=== PATIENT | male | born 1935 ===

== ENCOUNTER → 2017-01-21 | Outpatient (CLI) | payer OTHER | END | disposition home or self-care (01) | LOC: GT 07:44 | PROVIDERS: ATTEND Family Medicine | DX: E11.9 Type 2 diabetes mellitus without complications (principal) ==

== ENCOUNTER → 2017-01-23 | Outpatient (CLI) | payer OTHER | END | disposition home or self-care (01) | LOC: GT 08:15 | PROVIDERS: ATTEND Family Medicine | DX: E11.9 Type 2 diabetes mellitus without complications (principal) | CPT/HCPCS: 36415; 84443; P9603 ==

== ENCOUNTER 2017-02-17 10:26 | Inpatient (IN) | payer OTHER ==
--- NOTE | 2017-02-17 11:19 | RAD ---
EXAM DESCRIPTION: Chest,1 View CLINICAL HISTORY: 81 years Male, reported low o2 sats COMPARISON: None. IMPRESSION: The heart is enlarged, without failure. Large left basilar airspace opacity is demonstrated, most likely pneumonia. Recommend follow-up to confirm complete resolution. SPECT and small to moderate left pleural effusion. The right lung is essentially clear. No pneumothorax. No acute osseous abnormality. Electronically signed by: Preet Mart MD 02/17/2017 11:18 AM CDT
[2017-02-17] MEDS ORDERED: cefTRIAXone SODIUM 1 GM in SODIUM CHL 0.9% 50ML MIN-BAG+ 50 ML IVPB ONE (11:28)
[2017-02-17] MEDS ORDERED: SODIUM CHLORIDE 0.9% 1000ML 750 ML IVS ONE (11:28)
[2017-02-17] MEDS ORDERED: cefTRIAXone SODIUM 1 GM VIAL ONE ×2 (12:05→20:17)
[2017-02-17] MEDS ORDERED: SODIUM CHL 0.9% 50ML MIN-BAG+ 50 ML IVPB ONE ×2 (12:05→20:17)
--- NOTE | 2017-02-17 12:57 | ED.PDOC ---
History of Present Illness - General Chief Complaint: General Stated Complaint: Low oxygen sats per nsg home Time Seen by Provider: 02/17/17 10:39 Source: patient, group home records Exam Limitations: clinical condition - History of Present Illness Initial Comments: The patient is an 81-year-old male presenting to the emergency room secondary to generalized deterioration over the last 2-3 days. The patient is coming from a group home. He does have significant dementia. Approximately 6 or 7 days ago the patient was started on Levaquin for a respiratory tract infection. He apparently did fairly well for about 4 days after which his oral intake has decreased and he is good, little more altered than his baseline dementia. He has been ambulating less. He has apparently been coughing more. They were having a difficult time getting in at adequate pulse oximetry number this morning and so he was sent here to the emergency room for evaluation. The patient does have some significant dementia so the review of systems is limited. The patient does have actually bibasilar rales but less air movement on the left. He does have a rattling cough. He is not in respiratory distress and is pulse oximetry is remaining above 90% on room air while he is awake. He does look weak and frail. He has altered but pleasant. Mucous membranes are fairly dry. Capillary refillis just under 2 seconds. Timing/Duration: unsure, 1 week Severity: moderate Improving Factors: nothing Worsening Factors: nothing Associated Symptoms: cough, loss of appetite, malaise, shortness of breath, weakness Allergies/Adverse Reactions: Allergies Penicillins Allergy (Verified 02/17/17 10:35) Unknown Review of Systems - Review of Systems Constitutional: States: malaise, weakness EENTM: States: no symptoms reported Respiratory: States: cough, short of breath - ith activity primarily Cardiology: States: no symptoms reported Gastrointestinal/Abdominal: States: no symptoms reported Genitourinary: States: no symptoms reported Musculoskeletal: States: back pain - chronic Skin: States: no symptoms reported Neurological: States: other - mildly drowsy but pleasant and demented Hematologic/Lymphatic: States: no symptoms reported All other Systems: No Change from Baseline Past Medical History (General) - Patient Medical History Hx Stroke: Yes Hx Cardiac Disorders: Yes - Chronic A fib Hx Congestive Heart Failure: Yes Hx Thyroid Disease: Yes - Hypothyroidism Hx Diabetes: Yes - Vaccination History Hx Influenza Vaccination: - unknown Hx Pneumococcal Vaccination: - unknown - Activities of Daily Living Correction/Assisted Living (if applicable):: [facility] - Triage Comment ED Triage Comment: Pt is noted to be a poor historian Family Medical History - Family History Father Family History: No Known Living Status: Unknown Physical Exam - Physical Exam General Appearance: Alert - ut little bit drowsy, Frail Eye Exam: bilateral normal Ears, Nose, Throat: normal pharynx - mildly dry, other - mild decreased hearing bilaterally Neck: non-tender, full range of motion, supple Respiratory: chest non-tender, no respiratory distress, no accessory muscle use , decreased breath sounds - left lower lung, crackles - bilateral bases, rhonchi - do clear somewhat with cough Cardiovascular/Chest: normal peripheral pulses, no edema, other - regular rate Peripheral Pulses: radial,right: 2+, radial,left: 2+ Gastrointestinal/Abdominal: non tender, soft Rectal Exam: deferred Extremity: normal range of motion - given some arthritis, normal inspection, no pedal edema, no calf tenderness Neurologic: body maker II-XII nml as tested, alert, other - the patient knows who he is and that he has an illness. He is confused on the placement day currently. Skin Exam: pallor Comments: Vital Signs - 24 hr 02/17/17 02/17/17 02/17/17 10:35 11:05 11:15 Temperature 97.6 F Pulse Rate [ 84 84 Apical] Respiratory 20 20 20 Rate Blood Pressure 117/68 110/64 [Right Arm] O2 Sat by Pulse 98 100 Oximetry Progress - Progress Progress: 02/17/17 13:00 the patient is an 81-year-old male with dementia presenting with a left lower lobe pneumonia that appears to be failing out patient treatment at the group home. Blood cultures have been performed. For now the patient is not hypoxic. The patient is unfamiliar to me. I'm uncertain entirely what his baseline is. The patient will be placed on Rocephin and azithromycin for now. He will be monitored. He has been given a small IV fluid bolus for some dehydration. Sputum culture has not yet been done. - Results/Orders Results/Orders: Laboratory Last Values WBC 10.5 K/mm3 (4.8-10.8) 02/17/17 10:58 RBC 3.80 M/mm3 (4.70-6.10) L 02/17/17 10:58 Hgb 11.2 gm/dL (14.0-18.0) L 02/17/17 10:58 Hct 33.3 % (42.0-52.0) L 02/17/17 10:58 MCV 87.8 fl (80.0-94.0) 02/17/17 10:58 MCH 29.4 pg (27.0-31.0) 02/17/17 10:58 MCHC 33.5 g/dL (33.0-37.0) 02/17/17 10:58 RDW 16.5 % (11.5-14.5) H 02/17/17 10:58 Plt Count 288 K/mm3 (130-400) 02/17/17 10:58 MPV 8.1 fl (7.40-10.4) 02/17/17 10:58 Absolute Neuts (auto) 8.70 K/uL (1.8-6.8) H 02/17/17 10:58 Absolute Lymphs (auto) 0.80 K/uL (1.0-3.4) L 02/17/17 10:58 Absolute Monos (auto) 0.60 K/uL (0.2-0.8) 02/17/17 10:58 Absolute Eos (auto) 0.30 K/uL (0.0-0.4) 02/17/17 10:58 Absolute Basos (auto) 0.10 K/uL (0.0-0.1) 02/17/17 10:58 Neutrophils % 82.4 % (42.0-78.0) H 02/17/17 10:58 Lymphocytes % 8.1 % (20.0-50.0) L 02/17/17 10:58 Monocytes % 5.7 % (2.0-9.0) 02/17/17 10:58 Eosinophils % 3.0 % (1.0-5.0) 02/17/17 10:58 Basophils % 0.8 % (0.0-2.0) 02/17/17 10:58 Sodium 134 mmol/L (135-145) L 02/17/17 10:58 Potassium 4.0 mmol/L (3.6-5.0) 02/17/17 10:58 Chloride 98 mmol/L (101-111) L 02/17/17 10:58 Carbon Dioxide 26 mmol/L (21-31) 02/17/17 10:58 Anion Gap 14.0 (12-18) 02/17/17 10:58 BUN 33 mg/dL (7-18) H 02/17/17 10:58 Creatinine 1.20 mg/dL (0.6-1.3) 02/17/17 10:58 BUN/Creatinine Ratio 27.5 (10-20) H 02/17/17 10:58 Random Glucose 126 mg/dL (70-105) H 02/17/17 10:58 Serum Osmolality 277.0 mOsm/L (275-295) 02/17/17 10:58 Calcium 9.8 mg/dL (8.4-10.2) 02/17/17 10:58 Magnesium 2.0 mg/dL (1.8-2.5) 02/17/17 10:58 Total Bilirubin 1.1 mg/dL (0.2-1.0) H 02/17/17 10:58 AST 20 IU/L (10-42) 02/17/17 10:58 ALT 12 IU/L (10-60) 02/17/17 10:58 Alkaline Phosphatase 68 IU/L (42-121) 02/17/17 10:58 Creatine Kinase 46 IU/L (38-174) 02/17/17 10:58 CK-MB (CK-2) 4.1 ng/mL (0.0-4.4) 02/17/17 10:58 CK-MB (CK-2) % Not Reportable 02/17/17 10:58 Troponin I 0.02 ng/mL (0.01-0.05) 02/17/17 10:58 B-Natriuretic Peptide 176.0 pg/ml (0-100) H 02/17/17 10:58 Serum Total Protein 7.9 gm/dL (6.4-8.2) 02/17/17 10:58 Albumin 3.6 g/dl (3.2-5.5) 02/17/17 10:58 Globulin 4.3 gm/dL (2.3-3.5) H 02/17/17 10:58 Albumin/Globulin Ratio 0.8 (1.1-1.9) L 02/17/17 10:58 TSH 8.26 uIU/mL (0.34-5.60) H 02/17/17 10:58 chest x-ray shows significant left lower lung infiltrate. Small pleural effusion. Departure - Departure Clinical Impression: custodial-acquired pneumonia Disposition: Admit Patient Decision To Admit - Decistion To Admit Decision to Admit Reason: Medical Nature Decision to Admit Date: 02/17/17 Decision to Admit Time: 13:03
[2017-02-17] MEDS ORDERED: AZITHROMYCIN IV 500 MG in SODIUM CHLORIDE 0.9% 250ML 250 ML IVPB ONE (13:02)
--- NOTE | 2017-02-17 13:51 | HP ---
HISTORY OF PRESENT ILLNESS: This 81 year-old white male is admitted to the hospital via the Emergency Room after begin brought from [facility] where he is a guest. The nurses at the shelter have noted increasing confusion and decreased activity over the last couple of days. He apparently has been receiving Levaquin on a daily basis for the last 6 days because of an underlying cough. Increasing confusion has also been noted. His saturations at the shelter were low. He has had recurrent episodes of pneumonia in the past. In the Emergency Room, his white count was slightly elevated over 10, 000 and a chest x-ray revealed a significant left lower lobe infiltrative pneumonia. Evidence of having failed outpatient therapy and currently getting worse with altered level of consciousness resulted in his being admitted for parenteral treatment as well as to help support renal function which has declined, as well as follow closely his dementia and atrial fibrillation, etc. PAST MEDICAL HISTORY: 1. Gastroesophageal reflux disease with difficulty choking. 2. Low thyroid. 3. Borderline diabetes. 4. Shortness of breath with hypoxia. 5. Current illness with severe cough and dark sputum production. 6. Chronic atrial fibrillation on beta blockers as well as anticoagulant treatment. 7. Esophageal strictures requiring dilations. CURRENT MEDICATIONS: Please refer to list of verified home medications. ALLERGIES: PENICILLIN. FAMILY HISTORY: Positive for recurring pneumonias. 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 He stopped smoking approximately 50 years ago. REVIEW OF SYSTEMS: Some weight loss recently noted. No fever or chills. HEENT: Decreased hearing. LUNGS: Coughing with thick sputum, somewhat grayish green in coloration. No blood noted grossly. The patient is somewhat confused. Some mild shortness of breath noted with some clearing of sputum helping him to feel better. CARDIOVASCULAR: No significant chest pain but he does have irregular pulse. ABDOMEN: Appetite is decreased. No nausea, vomiting or diarrhea at this time, according to the patient, yet the son noted some vomiting in his bed earlier today. No blood in the stools. GENITOURINARY: No burning on urination. EXTREMITIES: No significant edema. NEUROLOGIC: The patient is somewhat confused and a poor historian. He is having some difficulty getting around and will require Physical Therapy evaluation to see if it is safe for ambulation attempts. PHYSICAL EXAMINATION: VITAL SIGNS: Afebrile, pulse 84, blood pressure 110/64, pulse oximetry 98% on room air. Weight 63.5 kilos. GENERAL: The patient is arousable and is able to carry on a conversation, but admits that he does not know a lot of his past history. Offered food after his admission. CHEST: Lungs have some rhonchi, especially in the left base noticeable compared to the right base. CARDIOVASCULAR: Heart tones slightly irregular with no significant gallops noted. ABDOMEN: Soft with no organomegaly or masses noted. EXTREMITIES: Fairly good muscle tone, moving all extremities. NEUROLOGIC: No focal neurological deficits, but the patient is noticeably confused and somewhat of a poor historian. LABORATORY: White count is 10,500 with 82% neutrophils, hemoglobin 11.2. Chemistries show sodium 134 with glucose 126, potassium 4.0, CO2 26, BUN elevated at 33, creatinine 1.2, bilirubin 1.1. Beta natriuretic peptide 176. Albumin 3.6. TSH elevated at 8.26. Urinalysis shows ketonuria as well as bilirubinuria, otherwise clear. Blood cultures and sputum culture pending. Chest x-ray performed in the Emergency Room does reveal significant left basilar pneumonia. ASSESSMENT: 1. Acute left lower lobe pneumonia probable community versus shelter acquired. 2. Chronic dementia. 3. Chronic atrial fibrillation on beta blockade as well as Xarelto anticoagulation. 4. Moderate hypoxia with oxygen supplement initiated. 5. Moderate dehydration. 6. Renal insufficiency with probably prerenal azotemia noted. 7. Hypothyroidism requiring adjustments of Synthroid dose to a higher dose. 8. Gastroesophageal reflux disease. 9. Dysphagia, difficulty swallowing with choking. 10. History of esophageal structures requiring dilatation. 11. Borderline diabetes currently on oral hypoglycemic agents. PLAN: The patient is admitted to the hospital for supportive care. Will continue with dual antibiotics, Rocephin and Azithromycin. Will require ongoing and close followup. He will eventually be discharged when stable to the shelter with continued followup with Dr. Haines or the house doctor on discharge. Reevaluation necessary. #[id number] MTDD
[2017-02-17] MEDS ORDERED: AZITHROMYCIN IV 500 MG VIAL IVPB ONE (14:00)
[2017-02-17] MEDS ORDERED: SODIUM CHLORIDE 0.9% 250ML 250 ML ONE (14:00)
[2017-02-17] MEDS ORDERED: SODIUM CHLORIDE 0.9% (FLUSH) 10 ML SYG IV PRN (17:50)
[2017-02-17] MEDS ORDERED: LEVALBUTEROL NEBS 1.25 MG/3 ML VIAL INH PRN (17:55)
[2017-02-17] MEDS ORDERED: MAGNESIUM HYDROXIDE 30 ML UD PO PRN (17:55)
[2017-02-17] MEDS ORDERED: IV SET AND CAP CHANGE INJ INJ SCH (18:00)
[2017-02-17] MEDS: IPRATROPIUM/ALBUTEROL 3 ML VIAL INH SCH ×2 (18:41→20:32)
[2017-02-17] MEDS: SODIUM CHLORIDE 0.9% 1000ML 1,000 ML IVS PRN (20:50)
[2017-02-17] MEDS: cefTRIAXone SODIUM 1 GM in SODIUM CHL 0.9% 50ML MIN-BAG+ 50 ML IVPB SCH (22:30)
[2017-02-18] MEDS: LEVOTHYROXINE SODIUM 0.1 MG TAB PO SCH (06:52)
[2017-02-18] MEDS: OMEPRAZOLE CAP 20 MG CAP PO SCH (06:52)
[2017-02-18] MEDS: SODIUM CHLORIDE 0.9% 1000ML 1,000 ML IVS PRN ×2 (06:52→16:42)
[2017-02-18] MEDS: IPRATROPIUM/ALBUTEROL 3 ML VIAL INH SCH ×4 (09:14→20:11)
[2017-02-18] MEDS: metFORMIN HCL 500 MG TAB PO SCH (09:36)
[2017-02-18] MEDS: PROPRANOLOL LA 80 MG CAP PO SCH (09:37)
[2017-02-18] MEDS: RIVAROXABAN 10 MG TAB PO SCH (09:37)
[2017-02-18] MEDS: POLYETHYLENE GLYCOL 3350 17 GM PCKT PO SCH (09:37)
[2017-02-18] MEDS ORDERED: cefTRIAXone SODIUM 1 GM VIAL ONE ×2 (10:40→20:13)
[2017-02-18] MEDS ORDERED: SODIUM CHL 0.9% 50ML MIN-BAG+ 50 ML IVPB ONE ×2 (10:40→20:12)
[2017-02-18] MEDS: cefTRIAXone SODIUM 1 GM in SODIUM CHL 0.9% 50ML MIN-BAG+ 50 ML IVPB SCH ×2 (10:46→22:09)
[2017-02-18] MEDS: AZITHROMYCIN 250 MG TAB PO SCH (13:33)
--- NOTE | 2017-02-18 19:48 | PCM.CORE ---
Physician DVT/VTE - Prophylaxis Currently: Patient already on anticoagulation therapy - xarelto - Nurse DVT Assessment & Total Each Risk Factor Represents 3 Points: Age over 75 years DVT Assessment Score: 3 - 3-4 High Risk Treatments: Early Ambulation *, Sequential Compression Device
--- NOTE | 2017-02-19 05:03 | RAD ---
Clinical History : Pneumonia , MAIN Exam : Portable AP view of the chest 02/18/2017 7:00 AM CDT Comparisons : Portable AP view of the chest February 17, 2017 Findings : There is stable retrocardiac airspace disease with a small left pleural effusion. The right lung remains largely clear. The heart is stable in size. The mediastinal contours are normal in appearance. The thoracic spine is age appropriate. The shoulders are unremarkable. Limited evaluation of the upper abdomen demonstrates no gross abnormalities. Impression: Stable retrocardiac airspace disease with small left effusion. Electronically signed by: Akhil Frias MD 02/19/2017 5:02 AM CDT
[2017-02-19] MEDS: OMEPRAZOLE CAP 20 MG CAP PO SCH (05:57)
[2017-02-19] MEDS: LEVOTHYROXINE SODIUM 0.1 MG TAB PO SCH (05:57)
[2017-02-19] MEDS: SODIUM CHLORIDE 0.9% 1000ML 1,000 ML IVS PRN ×2 (06:04→15:28)
--- NOTE | 2017-02-19 07:19 | RAD ---
Chest PA and lateral INDICATION: Pneumonia COMPARISON: February 18 IMPRESSION: Slight improvement in the left basilar infiltrate. Persistent left pleural effusion is noted. Normal heart size. Otherwise stable chest Electronically signed by: Eladio Jackson MD 02/19/2017 7:18 AM CDT
--- NOTE | 2017-02-19 08:01 | PN ---
SUPERVISING PHYSICIAN: Dylon Bridges MD DATE: 02/18/17 SUBJECTIVE: The patient continues to cough up copious amounts of sputum today. He remains afebrile. He says he feels a little bit better than admission and he is much more alert today. OBJECTIVE: VITAL SIGNS: T-max 97.9. Pulse 103. Blood pressure 104/63. Respirations 20. Saturation 98% at rest on 1 liter nasal cannula. I&Os are not completely accurate as he has been voiding without being measured. Weight is down to 56.1 kg. CHEST: Today, right side has noticeable rhonchi with left being fairly clear, but diminished towards the bases. No obvious wheezing. HEART: Regular rate and rhythm. ABDOMEN: Soft, nontender. Positive bowel sounds. EXTREMITIES: No cyanosis, clubbing or edema. NEUROLOGIC: Alert and oriented to person and place only, but very communicative. LABORATORY: White count 12.6, hemoglobin dropped from 11.2 to 9.9 with hematocrit dropping to 30.2, platelet count 236,000, differential with left shift. Chemistries today showed normalized electrolytes with BUN 39, creatinine 1.41 compared to admission of 1.20, calcium 9.1. MICROBIOLOGY: Blood cultures remain negative at 24 hours. Sputum culture shows normal cintia at 24 hours. RADIOLOGY: No new studies available today. ASSESSMENT: 1. Acute left lower lobe pneumonia, probable community as the patient lives in a long-term care facility. 2. Chronic dementia. 3. Chronic atrial fibrillation on beta blockade as well as Xarelto anticoagulation. 4. Moderate hypoxia with ongoing need for oxygen supplementation. 5. Moderate dehydration, showing slow improvement even with IV fluids, likely prerenal azotemia. 6. Renal insufficiency, showing a little clinical improvement after initiation of fluids, felt to be a degree of prerenal azotemia. 7. Hypothyroidism with the patient being on Synthroid, requiring adjusting. 8. Gastroesophageal reflux disease. 9. Dysphagia, difficulty swallowing and choking. 10. History of esophageal structures requiring previous dilatations. 11. Borderline diabetes, currently on oral hypoglycemic agents. PLAN: We will continue with antibiotic therapy to include Rocephin and azithromycin as well as aggressive pulmonary hygiene with DuoNeb treatments. We will anticipate needing at least 24 to 48 hours of antibiotics pending clinical improvement. We will plan to repeat a chest x-ray in the morning as well as repeat CBC and BMP. Once stable, he will be discharged and need close clinical followup with Dr. Haines upon returning to the [facility]. Until then, we will continue to monitor the patient closely and treat appropriately. [facility][id number]
[2017-02-19] MEDS: metFORMIN HCL 500 MG TAB PO SCH (08:27)
[2017-02-19] MEDS: IPRATROPIUM/ALBUTEROL 3 ML VIAL INH SCH ×4 (08:38→20:10)
[2017-02-19] MEDS: PROPRANOLOL LA 80 MG CAP PO SCH (09:30)
[2017-02-19] MEDS: RIVAROXABAN 10 MG TAB PO SCH (09:30)
[2017-02-19] MEDS: POLYETHYLENE GLYCOL 3350 17 GM PCKT PO SCH (09:30)
[2017-02-19] MEDS ORDERED: cefTRIAXone SODIUM 1 GM VIAL ONE ×2 (10:45→19:34)
[2017-02-19] MEDS ORDERED: SODIUM CHL 0.9% 50ML MIN-BAG+ 50 ML IVPB ONE ×2 (10:45→19:34)
[2017-02-19] MEDS: cefTRIAXone SODIUM 1 GM in SODIUM CHL 0.9% 50ML MIN-BAG+ 50 ML IVPB SCH ×2 (10:48→22:12)
[2017-02-19] MEDS: AZITHROMYCIN 250 MG TAB PO SCH (13:22)
--- NOTE | 2017-02-19 16:46 | PN ---
DATE: 02/19/17 SUPERVISING PHYSICIAN: Dylon Bridges M.D. SUBJECTIVE: The patient has had some episodes of some mild confusion but for the most part this morning he is oriented to his location and very conversive. He notes that he has been a little bit better. His appetite has not been great. He has been refusing to eat at times. He does remain afebrile. OBJECTIVE: VITAL SIGNS: Temperature 96.9, pulse 102, blood pressure 147/79, respirations 16, O2 sat 98% on nasal cannula at 1 liter. I's and O's are not well documented as he has been voiding without measurement. Intake shows 2580. He is on IV fluids which will be decreased today as he increases his intake. Weight 56.3 kg. CHEST: Left lung is clear, just slightly diminished towards the base. Right lung continues to have notable rhonchi towards the lateral posterior aspect, but no wheezing is noted. HEART: Slightly irregular rate and rhythm. ABDOMEN: Soft, non-tender. Positive bowel sounds. EXTREMITIES: No clubbing, cyanosis or edema. NEUROLOGIC: He is alert to himself and location, and very cooperative. LABORATORY: White count today has normalized to 8.2, hemoglobin 9.2, hematocrit 27.3, platelet count 186,000. Differential now shows to have normalized. Chemistries show normal electrolytes. Sodium 136, potassium 3.9, BUN 26 which has improved slightly from previous day at 39, creatinine now has normalized to 0.85 with glucose 81, calcium 8.6. MICROBIOLOGY: Sputum culture final results show normal cintia. Blood cultures remain negative at 48 hours. RADIOLOGY: Chest x-ray today per radiology interpretation two view shows slight improvement of left basilar infiltrate, persistent left pleural effusion was noted. ASSESSMENT: 1. Acute left lower lobe pneumonia community acquired as the patient does live in a [facility] care facility with sputum culture showing normal cintia and the patient showing good response to antibiotic therapy, and improvement on his radiographic studies. 2. Chronic dementia. 3. Chronic atrial fibrillation on beta blockade as well as Xarelto anticoagulation. 4. Moderate hypoxia with continued need for oxygen supplementation. 5. Moderate dehydration improved after IV fluids. 6. Renal insufficiency showing good clinical improvement after initiation of fluids. 7. Hypothyroidism. The patient currently on Synthroid requiring adjusting. 8. Gastroesophageal reflux disease. 9. Dysphagia and difficulty swallowing with choking which is not an acute finding. 10. Borderline diabetes currently on oral hyperglycemic agents. PLAN: Will continue with additional days of antibiotic therapy as the patient is showing clinical improvement, although will benefit from an additional 24 hours of ongoing therapy. Will continue with Azithromycin and Rocephin, as well as aggressive pulmonary hygiene with DuoNeb treatments. Will anticipate discharging tomorrow back to care facility with continued antibiotic therapy if the patient is clinically shown to be stable. Will plan to repeat laboratory studies in the morning, including BMP. Until discharge, will continue to monitor the patient closely and treat appropriately. Once discharged, he will need close clinical followup with Dr. Haines. [facility][id number] [facility]
[2017-02-20] MEDS: SODIUM CHLORIDE 0.9% 1000ML 1,000 ML IVS PRN (04:49)
[2017-02-20] MEDS: LEVOTHYROXINE SODIUM 0.1 MG TAB PO SCH (06:08)
[2017-02-20] MEDS: OMEPRAZOLE CAP 20 MG CAP PO SCH (06:08)
[2017-02-20] MEDS: metFORMIN HCL 500 MG TAB PO SCH (08:03)
[2017-02-20] MEDS ORDERED: SODIUM CHL 0.9% 50ML MIN-BAG+ 50 ML IVPB ONE (08:23)
[2017-02-20] MEDS: IPRATROPIUM/ALBUTEROL 3 ML VIAL INH SCH ×2 (08:24→12:54)
[2017-02-20] MEDS ORDERED: cefTRIAXone SODIUM 1 GM VIAL ONE (08:24)
[2017-02-20] MEDS ORDERED: BIFIDOBACTERIUM INFANTIS 4 MG CAP PO SCH (09:00)
[2017-02-20] MEDS: RIVAROXABAN 10 MG TAB PO SCH (09:41)
[2017-02-20] MEDS: PROPRANOLOL LA 80 MG CAP PO SCH (09:42)
[2017-02-20] MEDS: POLYETHYLENE GLYCOL 3350 17 GM PCKT PO SCH (09:42)
[2017-02-20] MEDS: cefTRIAXone SODIUM 1 GM in SODIUM CHL 0.9% 50ML MIN-BAG+ 50 ML IVPB SCH (09:42)
[2017-02-20 13:27] VITALS: O2SAT 96
[2017-02-20] MEDS: AZITHROMYCIN 250 MG TAB PO SCH (13:39)
[2017-02-20 14:55] VITALS: BP 132/71; TEMP 97.6
--- NOTE | 2017-02-22 13:02 | DS ---
SUPERVISING PHYSICIAN: Dylon Bridges MD DISCHARGE DIAGNOSIS: 1. Left lower lobe pneumonia community acquired with sputum culture showing normal cintia and the patient showing good response to antibiotic therapy and improvement on his radiographic studies prior to discharge. 2. Chronic dementia. 3. Chronic atrial fibrillation on beta blockade as well as Xarelto anticoagulation. 4. Moderate hypoxia with continued need for oxygen. 5. Moderate dehydration improved after IV therapy. 6. Renal insufficiency showing improvement after initiation of fluids. 7. Hypothyroidism with patient currently on Synthroid requiring adjustment. 8. Gastroesophageal reflux disease. 9. Dysphagia and difficulty swallowing and choking which is not an acute finding. 10. Borderline diabetes currently on oral hyperglycemic agents. HISTORY OF PRESENT ILLNESS: Mr. Presley is an 81 year-old male who resides at [facility]. He was admitted to the hospital via the Emergency Room after he was brought by [facility] noting that he had had increasing confusion and decreased activity over the last several days prior to admission. He apparently had been receiving Levaquin on a daily basis for 6 days prior to his underlying cough. Increasing confusion was also noted. His saturations at the prison were low. He has had recurrent episodes of pneumonia in the past. In the Emergency Room, his white count was slightly elevated over 10,000. His chest x-ray revealed a significant left lower lobe infiltrative process suggestive for pneumonia. Evidence of having failed outpatient therapy and currently getting worse prior to admission with altered level of consciousness resulted in his being admitted on parenteral antibiotics as well as support for renal function which has shown decline. He was admitted in stable condition to the medical/surgical floor. LABORATORY STUDIES: White count on admission was 10.5, it did maximize up to 12.6, at discharge it was down to 6.9. Platelet count was at 186,000, differential showed initial left shift that had resolved prior to discharge. Hemoglobin and hematocrit was stable and at discharge was 9.4 and 28.2. Chemistries on admission showed a low sodium of 134 with potassium 4.0, BUN 33, creatinine 1.20 with liver functions showing to be within normal limits except for a slightly elevated total bilirubin at 1.1. His magnesium was 2.0. BNP was slightly elevated at 176. After initiation of IV fluids and treatment, prior to discharge his electrolytes had normalized with potassium at 3.8, sodium 138, calcium 8.6. Renal function had improved. BUN down to 20, creatinine down to 0.70. Urinalysis on admission showed 15 ketones with a small amount of bilirubin and 2.0 urobilinogen on dipstick with microscopic showing to be within normal limits. MICROBIOLOGY: He had a sputum culture that showed normal growth at 48 hours. His blood cultures remained negative at 4 days. RADIOLOGY: Studies included a chest x-ray prior to admission and per radiology interpretation showed a large left basilar air space opacity demonstrated, most likely pneumonia. This was followed up with serial radiographic studies and on 02/19, final radiographic study indicated per radiology interpretation a slight improvement of left basilar infiltrate, persistent left pleural effusion is noted with otherwise stable chest. HOSPITAL COURSE: Mr. Presley was admitted on 02/17/13 as noted for concerns for left lower lobe pneumonia. He was initiated on IV antibiotics to include azithromycin and Levaquin. He was started on nebulizer treatments and aggressive pulmonary hygiene. The patient did show good improvement both radiographic and clinically and laboratory studies as well. It was felt that he could be discharged to continue with treatment with antibiotics in the prison. PLAN: The patient was discharged on 02/20/17 with instructions that he needed close clinical followup with [facility] or his other primary care physicians as noted. The prison was to call Dr. Haines office to schedule a followup appointment in the following week. He was to resume his home medications as instructed and take any new medications as directed. He is to return to the hospital should he have any concerning symptoms or other worsening symptoms. New prescriptions at discharge: 1. Zithromax 500 mg tablet every 4 hours p.r.n., #3. 2. Align 4 mg tablet daily. 3. Cefdinir 300 mg twice a day, #12. 4. Duoneb treatments, 1 inhaled every 4 hours as needed. 5. Xopenex nebulizer treatments 1.25 mg nebulized as needed, #30. 6. Synthroid which is a change in his medication, now at 0.1 mg daily. 7. Magnesium hydroxide, 30 mL as needed for constipation. CONDITION ON DISCHARGE: Stable and improved. DIET: 1800 calorie ADA diet as tolerated, soft, mechanical. #[id number] MTDD
== END 2017-02-20 14:20 | DRG 195 ==
LOC: ER 10:26 → MS 13:49
PROVIDERS: ADMIT Emergency Medicine; ATTEND Emergency Medicine
DX: J18.9 Pneumonia, unspecified organism (principal); F03.90 Unspecified dementia, unspecified severity, without behavioral disturbance, psychotic disturbance, mood disturbance, and anxiety; I48.2 Chronic atrial fibrillation; R09.02 Hypoxemia; E86.0 Dehydration; R79.89 Other specified abnormal findings of blood chemistry; N28.9 Disorder of kidney and ureter, unspecified; E03.9 Hypothyroidism, unspecified; K21.9 Gastro-esophageal reflux disease without esophagitis; R13.10 Dysphagia, unspecified; R73.03 Prediabetes; Z79.01 Long term (current) use of anticoagulants; Z79.84 Long term (current) use of oral hypoglycemic drugs; Z88.0 Allergy status to penicillin; Z87.891 Personal history of nicotine dependence; Z99.81 Dependence on supplemental oxygen; Z79.899 Other long term (current) drug therapy

== ENCOUNTER → 2017-02-25 | Outpatient (CLI) | payer OTHER | LOC: GT 09:20 | PROVIDERS: ATTEND Family Medicine | DX: E11.9 Type 2 diabetes mellitus without complications (principal); E03.9 Hypothyroidism, unspecified; I50.9 Heart failure, unspecified; I67.9 Cerebrovascular disease, unspecified; I48.2 Chronic atrial fibrillation | CPT/HCPCS: 36415; 82607; P9603 ==

== ENCOUNTER 2017-03-12 17:38 | Inpatient (IN) | payer OTHER ==
--- NOTE | 2017-03-12 17:43 | ED.PDOC ---
History of Present Illness - General Chief Complaint: Respiratory Problem Stated Complaint: dyspnea Time Seen by Provider: 03/12/17 17:42 Source: EMS notes reviewed Exam Limitations: clinical condition - in respiratory distress due to heart failure and has DNR orders - History of Present Illness Initial Comments: Bucky Presley 81 y/o male brought by ems after he was found to be dyspmeic and [facility]ypneic at [facility].Has a.fib ,hypothyroidism and chf. On his arrival at er noted to be lethargic ,hypoxemic Sao2-86%,tachypneic- RR38 and afib w/RVR-rate 139.Hospitalized for pneumonia 2-3 weeks ago. Timing/Duration: 1-3 hours Severity: severe Activities at Onset: none Possible Cause: occasional episodes Worsening Factors: nothing Respiratory Risk Factors: no cause identified Allergies/Adverse Reactions: Allergies Penicillins Allergy (Verified 03/12/17 18:28) Unknown Home Medications: Ambulatory Orders Metformin HCl 500 mg PO DAILY 02/17/17 Polyethylene Glycol 3350 [Miralax] 17 gm PO DAILY 02/17/17 Propranolol LA [Inderal LA] 80 mg PO DAILY 02/17/17 Rivaroxaban [Xarelto] 10 mg PO DAILY 02/17/17 Azithromycin Tab [Zithromax Tab] 500 mg PO Q24H #3 tablet 02/20/17 Bifidobacterium Infantis [Align] 4 mg PO DAILY 02/20/17 Cefdinir [Omnicef] 300 mg PO BID #12 cap 02/20/17 Ipratropium/Albuterol [Duoneb] 3 ml INH RTQID PRN #30 neb 02/20/17 Levalbuterol Nebs [Xopenex NEBS] 1.25 mg INH PRN PRN #30 02/20/17 Levothyroxine Sodium [Synthroid] 0.1 mg PO DAILY #30 tablet 02/20/17 Magnesium Hydroxide [Milk Of Magnesia] 30 ml PO DAILY PRN 02/20/17 Review of Systems - Review of Systems Unable to Obtain Due To: condition - in heart failure, clinical condition - lethargic,tachypneic Past Medical History (General) - Patient Medical History Hx Stroke: No Hx Cardiac Disorders: Yes - Chronic A fib Hx Congestive Heart Failure: Yes Hx Thyroid Disease: Yes - Hypothyroidism Hx Diabetes: Yes - type 2 - Vaccination History Hx Influenza Vaccination: - unknown Hx Pneumococcal Vaccination: - unknown Family Medical History - Family History Father Family History: No Known Living Status: Unknown Physical Exam - Physical Exam General Appearance: Lethargic, Obvious distress, Ill Appearing Eyes, Ears, Nose, Throat Exam: PERRL/EOMI, normal ENT inspection, pharynx normal Neck: non-tender, full range of motion, supple Respiratory: respiratory distress, crackles, rales - all over Cardiovascular/Chest: tachycardia, irregularly irregular Peripheral Pulses: radial,right: 1+, radial,left: 1+ Gastrointestinal/Abdominal: non tender, soft, no organomegaly Extremity: non-tender, no pedal edema, no calf tenderness Neurologic: other - lethargic Skin Exam: mottled Lymphatic: no adenopathy Progress - Progress Progress: 03/12/17 19:59 Vital Signs - 8 hr 03/12/17 03/12/17 03/12/17 17:45 18:10 18:15 Pulse Rate [ 130 H 127 H pulse ox] Respiratory 45 H 12 45 H Rate Blood Pressure 119/62 126/91 [Left Arm] O2 Sat by Pulse 90 L 92 L Oximetry 03/12/17 03/12/17 03/12/17 18:40 18:45 19:04 Pulse Rate [ 118 H 130 H 113 H pulse ox] Respiratory 28 H 45 H 45 H Rate Blood Pressure 130/78 [Left Arm] O2 Sat by Pulse 92 L Oximetry Laboratory Tests 03/12/17 03/12/17 03/12/17 18:01 18:01 18:01 WBC 10.2 RBC 3.90 L Hgb 11.3 L Hct 34.6 L MCV 88.6 MCH 28.9 MCHC 32.6 L RDW 16.7 H Plt Count 245 MPV 9.5 Absolute Neuts (auto) 7.20 H Absolute Lymphs (auto) 1.80 Absolute Monos (auto) 1.10 H Absolute Eos (auto) 0.00 Absolute Basos (auto) 0.00 Neutrophils % 70.8 Lymphocytes % 17.7 L Monocytes % 11.2 H Eosinophils % 0.1 L Basophils % 0.2 Sodium 132 L Potassium 5.3 H Chloride 98 L Carbon Dioxide 21 Anion Gap 18.3 H BUN 32 H Creatinine 1.83 H BUN/Creatinine Ratio 17.5 Random Glucose 269 H Serum Osmolality 280.9 Calcium 8.9 Total Bilirubin 1.5 H AST 29 ALT 13 Alkaline Phosphatase 82 Creatine Kinase 217 H* CK-MB (CK-2) 4.0 CK-MB (CK-2) % Not Reportable Troponin I 0.04 B-Natriuretic Peptide 408.0 H* Serum Total Protein 7.9 Albumin 3.2 Globulin 4.7 H Albumin/Globulin Ratio 0.7 L TSH 8.85 H Urine Color Urine Appearance Urine pH Ur Specific [place] Urine Protein Urine Glucose (UA) Urine Ketones Urine Blood Urine Nitrite Urine Bilirubin Urine Urobilinogen Ur Leukocyte Esterase Urine RBC Urine WBC Ur Epithelial Cells Urine Bacteria 03/12/17 18:30 WBC RBC Hgb Hct MCV MCH MCHC RDW Plt Count MPV Absolute Neuts (auto) Absolute Lymphs (auto) Absolute Monos (auto) Absolute Eos (auto) Absolute Basos (auto) Neutrophils % Lymphocytes % Monocytes % Eosinophils % Basophils % Sodium Potassium Chloride Carbon Dioxide Anion Gap BUN Creatinine BUN/Creatinine Ratio Random Glucose Serum Osmolality Calcium Total Bilirubin AST ALT Alkaline Phosphatase Creatine Kinase CK-MB (CK-2) CK-MB (CK-2) % Troponin I B-Natriuretic Peptide Serum Total Protein Albumin Globulin Albumin/Globulin Ratio TSH Urine Color Dk yellow Urine Appearance Sl cloudy Urine pH 6.[address] 1.015 Urine Protein 30 Urine Glucose (UA) Negative Urine Ketones Negative Urine Blood Negative Urine Nitrite Negative Urine Bilirubin Small H Urine Urobilinogen 0.2 Ur Leukocyte Esterase Negative Urine RBC 0-1 Urine WBC 0 Ur Epithelial Cells 1-3 Urine Bacteria 1+ - EKG/XRAY/CT EKG: Atrial, Tachy, Fibrillation Comments: HR-139 XRAY: chest - worsening of interstial opcification left .right either edema or pneuemonia Departure - Departure Clinical Impression: Atrial fibrillation with RVR, Do not resuscitate status Dyspnea Qualifiers: Dyspnea type: other forms of dyspnea Qualified Code(s): R06.09 - Other forms of dyspnea Congestive heart failure Qualifiers: Congestive heart failure type: unspecified congestive heart failure type Congestive heart failure chronicity: acute on chronic Qualified Code(s): I50.9 - Heart failure, unspecified Hypothyroidism Qualifiers: Hypothyroidism type: unspecified Qualified Code(s): E03.9 - Hypothyroidism, unspecified Time of Disposition: 20:01 Disposition: Admit Patient Condition: Fair Referrals: MANKINS,VISHAL L [Primary Care Provider] - 1-2 Weeks Home Medications: Ambulatory Orders Metformin HCl 500 mg PO DAILY 02/17/17 Polyethylene Glycol 3350 [Miralax] 17 gm PO DAILY 02/17/17 Propranolol LA [Inderal LA] 80 mg PO DAILY 02/17/17 Rivaroxaban [Xarelto] 10 mg PO DAILY 02/17/17 Azithromycin Tab [Zithromax Tab] 500 mg PO Q24H #3 tablet 02/20/17 Bifidobacterium Infantis [Align] 4 mg PO DAILY 02/20/17 Cefdinir [Omnicef] 300 mg PO BID #12 cap 02/20/17 Ipratropium/Albuterol [Duoneb] 3 ml INH RTQID PRN #30 neb 02/20/17 Levalbuterol Nebs [Xopenex NEBS] 1.25 mg INH PRN PRN #30 02/20/17 Levothyroxine Sodium [Synthroid] 0.1 mg PO DAILY #30 tablet 02/20/17 Magnesium Hydroxide [Milk Of Magnesia] 30 ml PO DAILY PRN 02/20/17 Decision To Admit - Decistion To Admit Decision to Admit Reason: Admit from ER Decision to Admit Date: 03/12/17 Decision to Admit Time: 20:02 - D/W Tobi Salazar-ANP/Hospitalist
[2017-03-12] MEDS ORDERED: BUMETANIDE 0.25 MG/ML VIAL IV ONE (17:46)
--- NOTE | 2017-03-12 18:02 | RAD ---
EXAM: Chest,1 View CLINICAL INDICATION: 81-year-old male with dyspnea (shortness of breath). TECHNIQUE: Single view, AP portable chest was obtained. COMPARISON: 02/19/2017. FINDINGS: Prominent cardiac mediastinal silhouette. Heart size is top normal. Tortuous atherosclerotic thoracic aorta. Interval worsening of bilateral LEFT greater than RIGHT interstitial and airspace opacification concerning for multifocal pneumonia or edema. Aspirate may be considered in the differential. Elevation of the RIGHT hemidiaphragm. Small left-sided pleural effusion. No gross pneumothoraces. The visualized bones are within normal limits. IMPRESSION: Interval worsening of aeration as detailed above. Please correlate with patient clinical findings and follow-up for resolution. Electronically signed by: Elisha Whitney MD 03/12/2017 6:01 PM CDT Workstation: [id number]
[2017-03-12] MEDS ORDERED: DIGOXIN INJ 0.5 MG/2 ML AMP IV ONE (18:12)
[2017-03-12] MEDS ORDERED: INSULIN, REG.(HUMAN) 100 U/ML VIAL SUBCU ONE (19:39)
--- NOTE | 2017-03-12 20:08 | HP ---
SUPERVISING PHYSICIAN: Shaun Duran MD CHIEF COMPLAINT: Dyspnea. HISTORY OF PRESENT ILLNESS: Mr. Presley is an 81-year-old, male patient who resides at [facility]. He was brought in by EMS secondary to worsening shortness of breath. On arrival to the Emergency Room, it was noted he was lethargic and hypoxic with a SAO2 of 86% on room air with a respiratory rate of 45 and cardiac rhythm indicated atrial fibrillation with rapid ventricular response with rate of 139. The patient was recently hospitalized for left lower lobe pneumonia and discharged on 02/20/17 and treated with Rocephin and azithromycin while in the hospital and discharged on continued antibiotics including cefdinir and continued dose of azithromycin. Vital signs initially in the Emergency Department showed he had a heart rate of 130 with blood pressure 119/62 and respirations were 45, saturation 90% on a simple face mask at 12 liters of flow. He was then started on BiPAP which did improve his saturations to 92%. Radiographic studies were completed and a single view chest per radiologic interpretation indicated interval worsening of bilateral, left greater than right, interstitial and airspace opacification, concerning for multifocal pneumonia or edema. Aspiration cannot be excluded. The patient was given Bumex 2 mg with concerns for pulmonary edema as he did have an elevated BNP of 408. However, the patient does not have an formal diagnosis of congestive heart failure. Rate control was attempted with medications to include Cardizem which resulted in a drop in his blood pressure and then he was started on digoxin 0.25 mg loading dose which did result in some improvement in his heart rate, dropping it down into the 90s. The patient was showing minimal improvement with BiPAP and Dr. Sandoval requested the patient be admitted to the Medical/Surgical Floor for continuation of treatment and further evaluation for possible developing congestive heart failure with pulmonary edema. The patient is a DNR and, therefore, the patient was found stable at this point and will be admitted to the Medical/Surgical Floor for continuation of treatment and further evaluation. The majority of his history was obtained from previous hospitalization as the patient is unable to provide history secondary to his current mental status. PAST MEDICAL HISTORY: 1. Gastroesophageal reflux disease with difficulty choking. 2. Hypothyroidism with elevated TSH, on supplementation. 3. Borderline diabetes. 4. Chronic shortness of breath with hypoxia. 5. Chronic atrial fibrillation on beta blockers as well as anticoagulant treatment. 6. Esophageal strictures requiring previous dilations. 7. Recent hospitalization for left lower lobe pneumonia. PAST SURGICAL HISTORY: Unknown. CURRENT MEDICATIONS: 1. Metformin 500 mg daily. 2. Milk of Magnesia 30 mL as needed. 3. Synthroid 0.1 mg daily. 4. Xarelto 10 mg daily. 5. Propranolol LA 80 mg daily. 6. MiraLAX 17 grams daily. 7. Xopenex nebulizers 1.25 mg as needed. 8. Cefdinir course recently being finished within the last 30 days as well as Zithromax. ALLERGIES: PENICILLINS. FAMILY HISTORY: Unknown. The patient is unable to provide history. 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 He was a smoker, but stopped smoking approximately 50 years ago. He currently resides at [facility]. He does not drink or smoke. REVIEW OF SYSTEMS: Unable to fully obtain secondary to the patient's condition being lethargic and on BiPAP. PHYSICAL EXAMINATION: VITAL SIGNS: On admission initially in the Emergency Room, pulse 130. Blood pressure 119/62. Saturation 90% on simple mask with 45 respirations. After initial treatment with BiPAP, Bumex, Cardizem and dig, the patient's vital signs on admission to the Medical/Surgical Floor showed heart rate 118. Blood pressure 101/65. Respirations 20 to 24. O2 saturation 100% on BiPAP. Admission weight 57 kg. GENERAL: The patient is on BiPAP and appears to be comfortable. No apparent distress on initial exam. He does appear ill, fragile. HEENT: Tympanic membranes obscured with cerumen bilaterally. Oropharynx is pink , dry mucosal membranes without any lesions. NECK: Supple, nontender. Full range of motion. No jugular venous distention noted. CHEST: Notable crackles over the right lung. Left lung was diminished. No wheezing or rales noted. CARDIOVASCULAR: Slightly irregular rate and rhythm with heart rate of 84 on admission with no murmurs, gallops, or rubs noted. ABDOMEN: Soft, nontender. Positive bowel sounds. EXTREMITIES: There is no cyanosis, clubbing or edema. NEUROLOGIC: The patient is responsive to questions on BiPAP. He is hard of hearing, but answers questions appropriately. He is tolerating BiPAP well. There were no noted neurologic deficits on admission. Facial features are symmetrical. Extraocular movements are within normal limits. Cranial nerves II- XII are grossly intact as assessed. He is alert to himself only. LABORATORY: White count on admission 10.2, hemoglobin 11.3, hematocrit 34.6, platelet count 245,000. Differential did show elevated absolute neutrophil count without an obvious left shift. Chemistries on admission showed low sodium at 132, but corrected for glucose of 269 was 137. Potassium 5.3, chloride 98, carbon dioxide normal at 21. Anion gap elevated at 18.3 with BUN 32, creatinine 1.83, glucose 629, calcium 8.9, magnesium pending. Lactic acid on admission to the Medical/Surgical Floor was elevated at 2.8. Liver functions within normal limits except for a mildly elevated bilirubin of 1.5. CPK 217, troponin 0.04, BNP elevated at 408, TSH elevated at 8.5. Urinalysis on catheterized specimen showed a mall amount of urobilinogen. All other parameters were within normal limits on dipstick. Microscopic revealed 1% bacteria, but no WBCs. ABGs: pH 7.41, PCO2 40, PO2 370, saturation 100% on BiPAP at 100.1 FIO2. MICROBIOLOGY: Blood cultures times 2 pending. Sputum culture pending. RADIOLOGY: Single view chest x-ray in the Emergency Department prior to admission per radiologic interpretation showed interval worsening of bilateral, left greater than right, interstitial and airspace opacification, concerning for multifocal pneumonia or edema. Aspiration may be considered in differential. There was note of a small left sided pleural effusion, but no gross pneumothorax. ASSESSMENT: 1. Acute respiratory distress,with a multifocal etiology with a developing multifocal pneumonia, hospital acquired and evidence of congestive heart failure and developing pulmonary edema with the patient having elevated BNP on admission. 2. Sepsis process secondary to developing multifocal pneumonia, hospital acquired, evidence of aspiration related with the patient having a history of choking in the past and being recently treated for left lower lobe pneumonia with sputum cultures pending and elevated lactic acid and anion gap. 3. Renal insufficiency, possibly secondary to prerenal azotemia. 4. Multifocal pneumonia, hospital acquired, with the patient having recently been on antibiotics within the last 30 days as well as being hospitalized for left lower lobe pneumonia and a resident of [facility] facility with evidence of aspiration pneumonia with the patient demonstrating early septic process requiring initiation of parenteral antibiotic and aggressive fluid management. 5. Hyperglycemia in a patient with a history of diabetes on oral therapy only. 6. Hypothyroidism with elevated TSH, requiring adjustment of medications. 7. Evidence of acute congestive heart failure in a patient without a past history of congestive heart failure, showing elevated BNP on admission with questionable vascular congestion on radiographic study with underlying pneumonia with the patient having difficulty clearing airway, requiring noninvasive ventilatory support with BiPAP with good response to BiPAP settings on admission. 8. History of esophageal strictures requiring previous dilations. 9. Chronic atrial fibrillation with rapid ventricular response initially on admission only a beta twin, requiring initiation of digoxin for rate control with some decompensated mechanism without current echocardiogram for review, with an acute septic process requiring close monitoring and further medical management, being hemodynamically stable on admission and on long-term anticoagulation therapy with Xarelto. 10. Electrolyte imbalance - hyperkalemia, secondary to the developing metabolic acidosis in the presence of lactic acidosis from sepsis process, requiring close monitoring and fluid management. PLAN: The patient has been admitted to the Medical/Surgical Floor from the Emergency Room. He is a DNR. He was given Bumex in the Emergency Department with minimal response. At this point, I feel like he is more volume depleted than overloaded and that his respiratory effort compromise is secondary to the worsening pneumonia. I plan to start him on meropenem for concerns for aspiration pneumonia and possible pseudomonas infection given that he is a long- term care resident and recently hospitalized with left lower pneumonia . We will try some fluid boluses cautiously and repeat his lactic acid in 6 hours with close monitoring. He was started on digoxin in the Emergency Department initially with 0.25 mg. I will follow this up with additional loading doses of 0.25 mg times 2 with close monitoring. Blood cultures are pending. Sputum cultures pending. We will await those final results to further target antibiotic therapy. We will utilize aggressive pulmonary hygiene as well as BiPAP as needed to maintain his oxygenation levels between 92% and 94% and titrate slowly on BiPAP as he shows clinical improvement. He has a Ward catheter in place. We will monitor his I&Os closely to assist with fluid management. At this point, again, we will give him a 500 bolus and watch closely and this will be followed with continued IV fluids as needed. I will start him on Xopenex breathing treatments q.8h. and p.r.n. He is having some difficulty with secretions and sputum. We will assist him with clearing airway as needed with suctioning. He will be started on sliding scale insulin protocol. We will plan to repeat his laboratory studies in the morning to further evaluate clinically as well as again repeat lactic acid in 6 hours tonight and adjust treatment accordingly. Should he show continuation of signs for pulmonary edema, we certainly will address with continued diuresis with Lasix and, again, monitor his fluid status closely. Will get cardiology consult jimmy Ni in the morning. Estimated length of stay to be at least 2 to 3 days, possibly more as he continues to progress clinically. We will plan to repeat chest x-ray in the morning as well and work to titrate him off BiPAP as he improves his oxygenation levels. Once clinically stable, the patient can return to [facility] to be seen in close followup with his primary care physician, Dr. Haines. Until then, we will continue to monitor the patient closely and treat appropriately. #[id number] [facility]
[2017-03-12] MEDS ORDERED: GLUCAGON INJ 1 MG VIAL SUBCU PRN (20:39)
[2017-03-12] MEDS ORDERED: SODIUM CHLORIDE 0.9% (FLUSH) 10 ML SYG IV PRN ×2 (20:39)
[2017-03-12] MEDS ORDERED: ACETAMINOPHEN 325 MG TAB PO PRN (20:39)
[2017-03-12] MEDS ORDERED: LEVALBUTEROL NEBS 1.25 MG/3 ML VIAL INH PRN (20:39)
[2017-03-12] MEDS ORDERED: DEXTROSE 50% 25 GM/50 ML SYG IV PRN (20:39)
[2017-03-12] MEDS ORDERED: MAGNESIUM HYDROXIDE 30 ML UD PO PRN (20:39)
[2017-03-12] MEDS ORDERED: NITROGLYCERIN 0.4 MG 25 EA TAB SL PRN (20:39)
[2017-03-12] MEDS ORDERED: IV SET AND CAP CHANGE INJ INJ SCH ×2 (21:00)
[2017-03-12] MEDS ORDERED: MEROPENEM 1 GM VIAL IVPB ONE (22:50)
[2017-03-12] MEDS ORDERED: SODIUM CHLORIDE 0.9% 50ML 50 ML ONE (22:51)
[2017-03-12] MEDS: MEROPENEM 1 GM in SODIUM CHL 0.9% 50ML MIN-BAG+ 50 ML IVPB SCH (22:54)
[2017-03-12] MEDS ORDERED: SODIUM CHLORIDE 0.9% 100ML 100 ML IVPB ONE (22:54)
[2017-03-12] MEDS: SODIUM CHLORIDE 0.9% 500ML 500 ML IVS ONE ×2 (22:58→23:27)
[2017-03-12] MEDS ORDERED: FUROSEMIDE INJ 40 MG/4 ML VIAL IV ONE (23:22)
[2017-03-12] MEDS: INSULIN LISPRO 100 UNITS/ML PEN SUBCU SCH (23:37)
[2017-03-13] MEDS: DIGOXIN INJ 0.5 MG/2 ML AMP IV SCH ×2 (00:04→06:11)
[2017-03-13] MEDS: SODIUM CHLORIDE 0.9% 1000ML 1,000 ML IVS PRN ×2 (00:06→18:24)
[2017-03-13] MEDS ORDERED: PANTOPRAZOLE SODIUM IV 40 MG VIAL IV SCH (06:30)
[2017-03-13] MEDS: INSULIN LISPRO 100 UNITS/ML PEN SUBCU SCH ×3 (07:21→16:20)
--- NOTE | 2017-03-13 08:26 | RAD ---
EXAM DESCRIPTION: Chest,1 View CLINICAL HISTORY: pneumonia COMPARISON: March 12, 2017 IMPRESSION: Single AP portable upright view of the chest shows mild enlargement of the cardiac silhouette without pulmonary vascular congestion. Lungs are normally aerated. There remains mild elevation of the right hemidiaphragm. Increased interstitial markings in the left mid to lower chest are seen but appear improved from previous and could represent chronic changes. Increased density in the retrocardiac region on the left could represent persistent atelectasis or pneumonia similar to previous exam. Mild indistinctness of the right costophrenic angle and indistinctness of the left hemidiaphragm suggests small bilateral pleural effusions. No pneumothorax. Electronically signed by: Naveed Mullins MD 03/13/2017 8:25 AM CDT
[2017-03-13] MEDS ORDERED: MEROPENEM 1 GM VIAL IVPB ONE ×2 (08:29→19:11)
[2017-03-13] MEDS ORDERED: SODIUM CHL 0.9% 50ML MIN-BAG+ 50 ML IVPB ONE ×2 (08:29→19:11)
[2017-03-13] MEDS: MEROPENEM 1 GM in SODIUM CHL 0.9% 50ML MIN-BAG+ 50 ML IVPB SCH ×2 (08:55→20:44)
[2017-03-13] MEDS ORDERED: SODIUM CHLORIDE 0.9% 500ML 500 ML IVS ONE (08:56)
[2017-03-13] MEDS: LISINOPRIL 5 MG TAB PO SCH (08:57)
[2017-03-13] MEDS: LEVALBUTEROL NEBS 1.25 MG/3 ML VIAL INH SCH ×3 (09:07→23:52)
[2017-03-13] MEDS ORDERED: BIFIDOBACTERIUM INFANTIS 4 MG CAP PO SCH (11:30)
[2017-03-13] MEDS: DIGOXIN 0.125 MG TAB PO SCH ×2 (11:34→14:20)
--- NOTE | 2017-03-13 14:49 | PN ---
SUPERVISING PHYSICIAN: Shaun Duran MD DATE: 03/13/17 SUBJECTIVE: The patient is much better this morning. He is able to be off BiPAP and on nasal cannula. He is actually sitting up in bed and attempting to eat breakfast. He remains afebrile with good rate control as noted on the bedside monitor. He has been somewhat hypotensive and was given fairly aggressive diuresis last night and did show good output. OBJECTIVE: VITAL SIGNS: T-max 98.0. Pulse 81. Blood pressure 99/60. Respirations 24. Saturation 94% on nasal cannula at rest at 3 liters. I&Os show negative balance of 1220 with weight being 57.2 kg. CHEST: Lungs are much better aerated today than admission. He just has very faint rhonchi heard towards the bases bilaterally and remains diminished bilaterally towards the bases. No obvious rales or wheezing noted. HEART: Irregular rate and rhythm with controlled ventriculare as noted on the monitor in the 80s to 90s. ABDOMEN: Soft, nontender. Positive bowel sounds. EXTREMITIES: No cyanosis, clubbing or edema. NEUROLOGIC: Alert to himself only and remains cooperative, but has some mild confusion at times. LABORATORY: White count this morning 8.7. Hemoglobin and hematocrit have shown some decrease down to 10.7 and 32.7 with platelet count 199,000. Differential now within normal limits. Last night, his initial lactic was 2.8. Six hours post treatment with IV fluids, he was to 2.3 and this morning is down to 1.6 having normalized. Magnesium normal at 1.9. Electrolytes this morning are within normal limits with potassium down to 4.0. BUN has shown some small elevation at 34, but his creatinine has shown some improvement down to 1.53. Anion gap is normalized and is now 16. Liver functions show just a slightly elevated bilirubin at 1.1 which is improved from admission. Glucoses have been 81 to 169. MICROBIOLOGY: Sputum culture pending. Blood cultures negative to date. RADIOLOGY: Chest x-ray this morning, single view, per radiologic interpretation showed lungs normally aerated with increased interstitial markings to the left mid to lower chest seen, but appear to be improved from previous and could represent chronic changes. Note of an increased density in the retrocardiac region on the left. This could represent persistent atelectasis or pneumonia seen on previous exam. There was mild indistinctness of the right cerebrovascular accident and indistinctness of the left diaphragm, suggesting small bilateral pleural effusion, but no pneumothorax. ASSESSMENT: 1. Acute respiratory distress,with a multifocal etiology with a developing multifocal pneumonia, hospital acquired, with evidence of congestive heart failure and developing pulmonary edema on admission with the patient having elevated BNP on admission, showing improvement after some mild diuresis and ongoing treatment with meropenem. 2. Sepsis process secondary to developing multifocal pneumonia, hospital acquired, with evidence of aspiration related to the patient having a history of choking in the past and being recently treated for left lower lobe pneumonia with sputum cultures pending with the patient now showing a normal anion gap and normalized lactic acid. 3. Metabolic acidosis secondary to lactic acidosis, having normalized after treatment with fluids and initiation of antibiotic therapy. 4. Renal insufficiency, secondary to prerenal azotemia, showing some improvement after gentle fluid management. 5. Multifocal pneumonia, hospital acquired, with the patient having recently been hospitalized and on antibiotics within the last 30 days for left lower lobe pneumonia and a resident of skilled nursing care facility with evidence of aspiration pneumonia on radiographic studies with the patient demonstrating early septic process initially requiring initiation of parenteral antibiotics including meropenem as well as aggressive fluid management, now showing normalization of lactic acid and some improvement in his radiographic studies and no longer requiring BiPAP. 6. Hyperglycemia in a patient with a history of diabetes on oral therapy, well controlled. 7. Hypothyroidism with elevated TSH, requiring adjustment of medications. 8. Evidence of acute congestive heart failure in a patient without a past history of congestive heart failure, showing elevated BNP on admission with questionable with underlying pneumonia as noted above requiring initiation of digoxin to assist in rate control as well as noninvasive ventilatory support with BiPAP with good response. 9. History of esophageal strictures requiring previous dilations. 10.Chronic atrial fibrillation with rapid ventricular response initially on admission only a beta twin, with the patient started on digoxin loading with the patient continuing to show good control with some decompensated mechanism without a current echocardiogram for review and exacerbated by acute sepsis process, requiring continued further monitoring and medical management and remaining hemodynamically stable as well as being on long-term anticoagulation therapy with Xarelto. 11. Electrolyte imbalance - hyperkalemia, secondary to the developing metabolic acidosis in the presence of lactic acidosis from sepsis process, now showing normalization after treatment with IV fluids and antibiotics. PLAN: The patient was seen in consultation by Dr. Ni, cardiology. Dr. Ni recommended we continue with the digoxin, low dose, and close monitoring. As he is DNR, he recommended no aggressive diagnostic studies such as echocardiogram, rather just manage the patient medically. He recommended we probably stay away from any aggressive diuresis as he felt the patient was probably volume depleted on admission. We will continue with recommendations from Dr. Ni as well as continued treatment with meropenem again for concerns of aspiration pneumonia and possible pseudomonas infection given that he is a resident of a long-term care facility and has recently been hospitalized with a left pneumonia. We will continue with IV fluids cautiously as he has now normalized his lactic acid. He has been loaded on digoxin with 0.25 times 3 doses and will be continued on daily dose of 0.125 with close monitoring. We will continue with aggressive pulmonary hygiene to help clear his airway and titrate off BiPAP as able as the patient improves clinically to maintain his O2 saturations 92% to 94%. We will plan to reevaluate in the morning with a repeat chest x-ray and laboratory studies. Until discharge, we will continue to monitor the patient closely and treat appropriately. #[id number] [facility]
[2017-03-13] MEDS: BIFIDOBACTERIUM INFANTIS 4 MG CAP PO SCH (20:40)
[2017-03-14] MEDS: INSULIN LISPRO 100 UNITS/ML PEN SUBCU SCH ×5 (00:08→20:58)
[2017-03-14] MEDS ORDERED: PANTOPRAZOLE SODIUM TAB 40 MG PO ONE (05:29)
[2017-03-14] MEDS ORDERED: LEVOTHYROXINE SODIUM 0.1 MG TAB ONE (05:30)
[2017-03-14] MEDS: LEVOTHYROXINE SODIUM 0.1 MG TAB PO SCH (05:55)
[2017-03-14] MEDS: PANTOPRAZOLE SODIUM TAB 40 MG PO SCH (05:55)
--- NOTE | 2017-03-14 06:49 | RAD ---
Procedure: XR CHEST 1 VIEW Exam Date: 03/14/2017 Ordering Provider: Davon Salazar NP Clinical Indication: pneumonia Comparison: 03/13/2017 Findings: Cardiomediastinal silhouette is stable. Focal lung consolidation: Left retrocardiac and basilar atelectasis and/or infiltrate. Right lung remains relatively clear. Pleural effusion: No large pleural effusions. Pneumothorax: None Acute bony or soft tissue abnormality: None Impression: 1. Left retrocardiac and basilar atelectasis and/or infiltrate. Electronically signed by: Angel Luis Mcgee MD 03/14/2017 6:48 AM CDT
[2017-03-14] MEDS: LEVALBUTEROL NEBS 1.25 MG/3 ML VIAL INH SCH ×4 (07:45→23:50)
[2017-03-14] MEDS ORDERED: RIVAROXABAN 10 MG TAB ONE (07:47)
[2017-03-14] MEDS ORDERED: PROPRANOLOL LA 80 MG CAP ONE (07:48)
[2017-03-14] MEDS ORDERED: POLYETHYLENE GLYCOL 3350 17 GM PCKT ONE (07:48)
[2017-03-14] MEDS ORDERED: SODIUM CHL 0.9% 50ML MIN-BAG+ 50 ML IVPB ONE ×2 (07:48→19:41)
[2017-03-14] MEDS ORDERED: BIFIDOBACTERIUM INFANTIS 4 MG CAP ONE (07:48)
[2017-03-14] MEDS ORDERED: MEROPENEM 1 GM VIAL IVPB ONE ×2 (07:49→19:42)
--- NOTE | 2017-03-14 08:24 | PCM.CORE ---
Physician DVT/VTE - Prophylaxis Currently: Patient already on anticoagulation therapy - xarelto - Nurse DVT Assessment & Total Each Risk Factor Represents 3 Points: Age over 75 years, Medical PT with Hx of [place], CHF, Severe infection/sepsis Each Risk Factor is 1 Point: Serious Lung disease (pnemonia <1month, COPD, emphysema,etc) DVT Assessment Score: 7 - 5 or more Very High Risk Treatments: Early Ambulation *, Sequential Compression Device
[2017-03-14] MEDS: MEROPENEM 1 GM in SODIUM CHL 0.9% 50ML MIN-BAG+ 50 ML IVPB SCH ×2 (08:26→20:56)
[2017-03-14] MEDS: PROPRANOLOL LA 80 MG CAP PO SCH (08:26)
[2017-03-14] MEDS: metFORMIN HCL 500 MG TAB PO SCH (08:26)
[2017-03-14] MEDS: LISINOPRIL 5 MG TAB PO SCH (08:26)
[2017-03-14] MEDS: POLYETHYLENE GLYCOL 3350 17 GM PCKT PO SCH (08:26)
[2017-03-14] MEDS: RIVAROXABAN 10 MG TAB PO SCH (08:26)
[2017-03-14] MEDS: BIFIDOBACTERIUM INFANTIS 4 MG CAP PO SCH (08:26)
[2017-03-14] MEDS: SODIUM CHLORIDE 0.9% 1000ML 1,000 ML IVS PRN (12:18)
[2017-03-14] MEDS: DIGOXIN 0.125 MG TAB PO SCH (12:21)
--- NOTE | 2017-03-14 17:21 | PN ---
DATE: 03/14/17 SUPERVISING PHYSICIAN: Shaun Duran M.D. SUBJECTIVE: The patient is actually up to the bedside chair this morning eating clear liquids. He continues to have some issues with food and choking. He is much more communicative this morning. He has been afebrile. OBJECTIVE: VITAL SIGNS: T max 98.3, pulse 86, blood pressure 123/69, respirations 18, satting 100% on nasal cannula at rest at 3 liters. I's and O' s show a positive balance of 733 with 1383 in, 650 out. Weight is 56.4 kg. CHEST: Lungs are fairly clear today. Very faint rhonchi heard to the lateral posterior aspect of the left lower lobe and just slightly diminished. No rales or wheezing are noted. HEART: Regular rate and rhythm. ABDOMEN: Soft, tender with positive bowel sounds. EXTREMITIES: No clubbing, cyanosis or edema. NEUROLOGIC: He is alert times one but very easily reoriented, but does not recall location after a short period of time. LABORATORY: White count today is shown to be stable at 8.8, hemoglobin dropped a little bit to 9.9, hematocrit as well to 30.1, platelet count is 180,000. Differential continues to show without a left shift. Chemistries today show normal electrolytes with potassium 3.9, BUN 29 which is down from 34 the previous day and his creatinine now is down to 0.93 from admission of 1.83. Blood sugars have been anywhere from 81 to 169. Calcium 8.8. Bilirubin remains slightly elevated, although improved from admission at 1.3. All other liver functions showed to be within normal limits. MICROBIOLOGY: Sputum culture shows normal cintia at 24 hours. Blood cultures remain negative at 24 hours. RADIOLOGY: Chest x-ray single view chest today shows left retrocardiac and basilar atelectasis and/or infiltrate per radiology. ASSESSMENT: 1. Acute respiratory distress on admission with a multifocal etiology from a multifocal pneumonia hospital acquired with some evidence of congestive heart failure and pulmonary edema initially on admission with the patient showing an elevated BNP but now showing improvement after diuresis and having been on Meropenem. 2. Septic process secondary to multifocal pneumonia hospital acquired with some evidence of aspiration pneumonia related to the patient having a history of choking and having been recently treated for left lower lobe pneumonia with sputum culture still showing normal cintia and the patient now normalized with an anion gap as well as normal lactic acid remaining on parenteral antibiotics to include Meropenem. 3. Metabolic acidosis on admission secondary to lactic acidosis having normalized after treatment with fluids and initiation of antibiotic therapy. 4. Renal insufficiency, prerenal azotemia secondary to dehydration showing improvement after gentle fluid management. 5. 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 6. Hyperglycemia in a patient with a history of diabetes on oral therapy shown to be well controlled. 7. Hypothyroidism with an elevated TSH requiring adjustment of medications. 8. Evidence of acute congestive heart failure in a patient without a history of congestive heart failure showing an elevated BNP on admission with some questionable right pneumonia that was noted as above requiring initiation of digoxin to assist with rate control showing good rate control now as well as having required noninvasive ambulatory support on BiPAP and now weaned down to nasal cannula. 9. History of esophageal strictures requiring previous dilations. 10. Chronic atrial fibrillation with rapid ventricular response initially on admission having been on a beta twin with the patient started on digoxin at admission loaded and continue with low dose digoxin showing some initial decompensated mechanism with no current echocardiogram for review probably felt to be exacerbated by acute sepsis process showing some good improvement after initiation of antibiotic therapy with Meropenem as well as diuresis and now showing to be hemodynamically stable with the patient being on terminal press operator anticoagulation to include Xarelto. 11. Electrolyte imbalance with hyperkalemia on admission secondary to developing metabolic acidosis with combined lactic acidosis from sepsis process having resolved after treatment with IV fluids and antibiotics. PLAN: Will continue with the antibiotic therapy at this point with Meropenem as the patient continues to show good clinical progression. He has been up to the chair which is I believe [facility] pretty [facility] Will continue with aggressive pulmonary hygiene to help clear secretions. Will plan to get a digoxin level in the morning and monitor his cardiac function telemetry feng with anticipation of discharging within the next several days after the patient has shown good clinical improvement and has had adequate duration of parenteral antibiotics to include Meropenem. Once the patient is discharged, he will need to continue with IV antibiotic therapy as appropriate. Until then, will continue to monitor and treat appropriately. #[id number] [facility]
[2017-03-15] MEDS: SODIUM CHLORIDE 0.9% 1000ML 1,000 ML IVS PRN ×2 (05:36→23:33)
[2017-03-15] MEDS: LEVOTHYROXINE SODIUM 0.1 MG TAB PO SCH (05:45)
[2017-03-15] MEDS: PANTOPRAZOLE SODIUM TAB 40 MG PO SCH (05:45)
[2017-03-15] MEDS: INSULIN LISPRO 100 UNITS/ML PEN SUBCU SCH ×4 (07:05→21:00)
[2017-03-15] MEDS ORDERED: SODIUM CHL 0.9% 50ML MIN-BAG+ 50 ML IVPB ONE ×2 (07:13→19:19)
[2017-03-15] MEDS ORDERED: MEROPENEM 1 GM VIAL IVPB ONE ×2 (07:14→19:19)
[2017-03-15] MEDS: metFORMIN HCL 500 MG TAB PO SCH (07:33)
[2017-03-15] MEDS: LEVALBUTEROL NEBS 1.25 MG/3 ML VIAL INH SCH ×3 (08:19→20:57)
[2017-03-15] MEDS: POLYETHYLENE GLYCOL 3350 17 GM PCKT PO SCH (09:22)
[2017-03-15] MEDS: RIVAROXABAN 10 MG TAB PO SCH (09:23)
[2017-03-15] MEDS: BIFIDOBACTERIUM INFANTIS 4 MG CAP PO SCH (09:23)
[2017-03-15] MEDS: MEROPENEM 1 GM in SODIUM CHL 0.9% 50ML MIN-BAG+ 50 ML IVPB SCH ×2 (09:23→20:40)
[2017-03-15] MEDS: PROPRANOLOL LA 80 MG CAP PO SCH (09:23)
[2017-03-15] MEDS: LISINOPRIL 5 MG TAB PO SCH (09:23)
[2017-03-15] MEDS: DIGOXIN 0.125 MG TAB PO SCH (11:59)
--- NOTE | 2017-03-15 18:26 | PN ---
DATE: 03/15/17 SUPERVISING PHYSICIAN: Shaun Duran M.D. SUBJECTIVE: The patient continues to show improvement clinically, although he is continuing with aspiration issues and choking. He has been afebrile. He has had no nausea or vomiting or diarrhea. OBJECTIVE: VITAL SIGNS: T max 98.0, pulse 72, blood pressure 116/75, respirations 20, satting 91% on nasal cannula at rest. I's and O's show a positive balance of 1750 with 2500 in, 750 out. CHEST: Lungs are much more clear today with no rhonchi or rales, but continue to be diminished towards the bases bilaterally. HEART: Slightly irregular rate and rhythm with a controlled ventricular rate. ABDOMEN: Soft, non-tender. Positive bowel sounds. EXTREMITIES: No clubbing, cyanosis or edema. NEUROLOGIC: He remains alert to himself and is now easily oriented to his surroundings and is very pleasant. LABORATORY: White count remains within normal limits at 6.7, hemoglobin continues to show a slow drop, today is down to 9.2, hematocrit is 27.9, platelet count 174,000. Differential remains within normal limits. Chemistries show a mild hypokalemia with 3.4 potassium, BUN 22, creatinine 0.78 , glucoses have been 87 to 128, calcium is 8.5. Bilirubin is now down to 1.2. Liver functions show to be within normal limits. MICROBIOLOGY: Final culture result for sputum showed normal cintia at 48 hours. Blood cultures remain negative at 48 hours. RADIOLOGY: No radiographic studies were completed today. Will plan to repeat a chest x-ray in the morning. ASSESSMENT: 1. Acute respiratory distress on admission with a multifocal etiology from a multifocal pneumonia hospital acquired with some evidence of congestive heart failure and pulmonary edema initially on admission with the patient presenting with an elevated BNP and showing some clinical improvement after diuresis initially with continued antibiotic therapy to include Meropenem. 2. Septic process secondary to multifocal pneumonia hospital acquired with some evidence of aspiration pneumonia related to the patient having a history of choking and having been recently treated for left lower lobe pneumonia with sputum still showing normal cintia and the patient now having a normal anion gap and having normalized his lactic acid with continued antibiotics to include Meropenem. 3. Metabolic acidosis on admission secondary to lactic acidosis, resolved after treatment with fluids and antibiotic therapy. 4. Renal insufficiency, prerenal azotemia secondary to dehydration now improvement after gentle fluid management. 5. Multifocal pneumonia, hospital acquired with the patient having again been treated recently a left lower lobe pneumonia and a resident of a [facility] care facility with the patient showing good clinical improvement after initiation of Meropenem with continued improvement radiographically and clinically with improving O2 saturations on nasal cannula. 6. Diabetes mellitus on oral therapy. 7. Hypothyroidism with an elevated TSH requiring adjustment of medications. 8. Evidence of congestive heart failure in a patient without a history of congestive heart failure showing an elevated BNP on admission with pneumonia as noted as above with initiation of digoxin to assist with rate control showing good rate control after continued digoxin and now on nasal cannula and BiPAP. 9. Chronic atrial fibrillation with rapid ventricular response initially on admission on a beta twin prior to admission and the patient started on digoxin showing now continued controlled ventricular rate with no current echocardiogram for review with some exacerbation on admission from his acute septic process, again showing good clinical improvement with initiation of Meropenem and brief diuresis, and remaining hemodynamically stable. 10. Electrolyte imbalance with hyperkalemia, persistent with initial hyperkalemia on admission felt to be secondary to a metabolic acidosis combined with lactic acidosis from the septic process as noted above showing good clinical improvement, but continues with a mild hypokalemia with IV fluids and antibiotic therapy. PLAN: The patient is showing good clinical progression and will benefit from an additional 24 to 48 hours of Meropenem to aggressively treat the underlying aspiration pneumonia. He has been up to a chair which I believe is his baseline at the [facility]. Digoxin level is pending. Will further assess dosing of digoxin based off levels and clinical response. Will anticipate hopefully discharging to either Swing Bed or back to the care facility depending on the patient's clinical response and need for continued antibiotic therapy based off clinical evaluation and repeat studies of chest x-rays. Until then, will continue to monitor and treat appropriately. #[id number] [facility]
[2017-03-16] MEDS: INSULIN LISPRO 100 UNITS/ML PEN SUBCU SCH ×3 (07:15→17:47)
--- NOTE | 2017-03-16 07:16 | RAD ---
EXAM DESCRIPTION: Chest,1 View CLINICAL HISTORY: pneumonia COMPARISON: March 14, 2017 FINDINGS: The cardiomediastinal silhouette is unremarkable. Bibasilar alveolar opacities are noted with possible small bilateral pleural effusions. Central bronchovascular markings are slightly indistinct. There is no pneumothorax or acute fracture. IMPRESSION: Abnormal exam as detailed above. Findings are compatible with either edema or bilateral pneumonia. Probable small bilateral pleural effusions. Electronically signed by: Storm Baker MD 03/16/2017 7:15 AM CDT Workstation: [id number]
[2017-03-16] MEDS: LEVOTHYROXINE SODIUM 0.1 MG TAB PO SCH (07:24)
[2017-03-16] MEDS: PANTOPRAZOLE SODIUM TAB 40 MG PO SCH (07:25)
[2017-03-16] MEDS: metFORMIN HCL 500 MG TAB PO SCH (08:37)
[2017-03-16] MEDS: LEVALBUTEROL NEBS 1.25 MG/3 ML VIAL INH SCH ×3 (09:49→20:49)
[2017-03-16] MEDS: POLYETHYLENE GLYCOL 3350 17 GM PCKT PO SCH ×2 (11:29→11:50)
[2017-03-16] MEDS ORDERED: MEROPENEM 1 GM VIAL IVPB ONE ×2 (11:30→19:55)
[2017-03-16] MEDS: BIFIDOBACTERIUM INFANTIS 4 MG CAP PO SCH (11:30)
[2017-03-16] MEDS: POTASSIUM CHLORIDE 10 MEQ TAB PO SCH ×2 (11:30→17:51)
[2017-03-16] MEDS: LISINOPRIL 5 MG TAB PO SCH (11:30)
[2017-03-16] MEDS: PROPRANOLOL LA 80 MG CAP PO SCH (11:30)
[2017-03-16] MEDS ORDERED: SODIUM CHL 0.9% 50ML MIN-BAG+ 50 ML IVPB ONE ×2 (11:30→19:54)
[2017-03-16] MEDS: RIVAROXABAN 10 MG TAB PO SCH (11:30)
[2017-03-16] MEDS: MEROPENEM 1 GM in SODIUM CHL 0.9% 50ML MIN-BAG+ 50 ML IVPB SCH ×2 (11:32→20:43)
[2017-03-16] MEDS ORDERED: MAGNESIUM HYDROXIDE 30 ML UD PO ONE (12:30)
[2017-03-16] MEDS ORDERED: KCL 20MEQ/WATER FOR INJ 100ML 20 MEQ in PREMIX BAG 1 BAG IVPB ONE (12:30)
[2017-03-16] MEDS ORDERED: KCL 20MEQ/WATER FOR INJ 100ML 100 ML IVPB ONE (12:33)
[2017-03-16] MEDS: DIGOXIN 0.125 MG TAB PO SCH (14:13)
[2017-03-17] MEDS: SODIUM CHLORIDE 0.9% 1000ML 1,000 ML IVS PRN ×2 (00:25→17:11)
[2017-03-17] MEDS: LEVOTHYROXINE SODIUM 0.1 MG TAB PO SCH (06:27)
[2017-03-17] MEDS: PANTOPRAZOLE SODIUM TAB 40 MG PO SCH (06:27)
[2017-03-17] MEDS ORDERED: SODIUM CHL 0.9% 50ML MIN-BAG+ 50 ML IVPB ONE ×2 (07:37→20:09)
[2017-03-17] MEDS ORDERED: MEROPENEM 1 GM VIAL IVPB ONE ×2 (07:38→20:09)
[2017-03-17] MEDS: metFORMIN HCL 500 MG TAB PO SCH (07:48)
[2017-03-17] MEDS: POTASSIUM CHLORIDE 10 MEQ TAB PO SCH ×2 (07:48→17:10)
[2017-03-17] MEDS: INSULIN LISPRO 100 UNITS/ML PEN SUBCU SCH ×5 (07:49→21:00)
--- NOTE | 2017-03-17 07:54 | PN ---
DATE: 03/16/17 SUBJECTIVE: The patient is lying in the bed, head slightly elevated. He is significantly confused. He does not know when he last walked. He does not know exactly where he is. He states that people have told him that he chokes easily, but he does not know that that is in fact the case. He is pleasant and in no acute distress. Appetite is only fair. He is having significant difficulty with thickened liquids, but does pretty well on pudding and Jello. OBJECTIVE: VITAL SIGNS: Afebrile. Pulse 80, slightly irregular with atrial fibrillation. Blood pressure 134/86. Pulse oximetry 98% on room air. Weight 58.9 kg, showing a slight increase in weight. The patient is significantly confused. HEENT: Unremarkable. LUNGS: Diminished breath sounds with some rhonchi. HEART: Tones are somewhat distant. ABDOMEN: Soft. LABORATORY: White count 4,900, hemoglobin has dropped to 9.1. Chemistries show potassium having dropped to 3.5, creatinine 1.56, glucose 97 fasting, albumin 2.4. Sputum and blood cultures are negative. Chest x-ray this morning shows evidence of bilateral pneumonia versus edema with associated effusions. ASSESSMENT: 1. Acute bilateral pneumonia with radiographic findings persistent. 2. Possible associated congestive heart failure with elevated BNP and associated pulmonary edema, showing some improvement with some gentle diuresis. 3. Significant metabolic acidosis on admission, probably secondary to lactic acidosis, showing improvement with fluid supplementation and antibiotic treatment of the underlying infection. 4. Chronic renal insufficiency with prerenal azotemia, secondary to moderate dehydration and hypovolemic state, helped by fluid supplementation. 5. Diabetes mellitus on oral therapy. 6. Hypothyroidism with an elevated TSH requiring adjustment of supplemental medications. 7. Evidence of congestive heart failure with acute exacerbation with etiology undetermined at this time, awaiting recent echocardiogram results. 8. Chronic atrial fibrillation with rapid ventricular response initially on a beta twin, to which has been added digoxin to assist with ventricular rate control. 9. Initial evidence of hyperkalemia, showing hypokalemia as his treatment course continues. 10. Chronic insomnia. 11. Dementia, quite severe. PLAN: We will continue with current observation. May benefit by a few more days of antibiotic coverage. Repeat two-view chest x-ray on Thursday morning and anticipate returning to the [facility] for continued rehabilitation. Have physical therapy evaluate in the morning for either Swing Bed or physical therapy rehab potential at the [facility]. [facility][id number] [facility]
[2017-03-17] MEDS: LEVALBUTEROL NEBS 1.25 MG/3 ML VIAL INH SCH ×3 (09:15→20:57)
[2017-03-17] MEDS: MEROPENEM 1 GM in SODIUM CHL 0.9% 50ML MIN-BAG+ 50 ML IVPB SCH ×2 (09:55→20:44)
[2017-03-17] MEDS: PROPRANOLOL LA 80 MG CAP PO SCH (09:57)
[2017-03-17] MEDS: RIVAROXABAN 10 MG TAB PO SCH (09:57)
[2017-03-17] MEDS: LISINOPRIL 5 MG TAB PO SCH (09:57)
[2017-03-17] MEDS: BIFIDOBACTERIUM INFANTIS 4 MG CAP PO SCH (09:57)
[2017-03-17] MEDS: DIGOXIN 0.125 MG TAB PO SCH (11:50)
--- NOTE | 2017-03-17 11:53 | PN ---
DATE: 03/17/17 SUBJECTIVE: The patient is sitting up and picking at his breakfast tray. He does have some fairly liquid parts to the breakfast and he may tolerate a more solid mechanical soft with ground meat. We will try that today at noon in anticipation of his being able to continue with custodial care at [facility] by tomorrow. The patient still does not admit that he does much choking , but it is definitely observed as nurses attempt to assist him with his eating. He has been offered a G-tube in the past, but apparently it was turned down by the family and the patient at that time, but will be readdressed at the time of discharge. The patient will benefit from a "swallow study" as an outpatient at [facility] which can be scheduled. OBJECTIVE: VITAL SIGNS: Afebrile. Pulse 102. Blood pressure 128/79. Pulse oximetry 94% on room air. Weight stable at 58.9 kg. The patient is able to carry on a fairly good conversation though he is somewhat confused regarding details. He appears to be in no acute respiratory distress at this time, but is clearing his throat of apparent respiratory secretions on a very frequent basis. LUNGS: Generally clear with a few rhonchi which he clears with coughing. HEART: Regular. ABDOMEN: Soft. Good bowel movement last evening, but was present in the bed requiring significant clean up. LABORATORY: Hemoglobin 9.3, which is up from 9.1 yesterday. White count 6, 000. Chemistries show sodium 134, potassium 4.2, BUN 12, creatinine 0.56, fasting sugar 85, calcium 8.2. Recent dig level is normal at 1.2. Sputum and blood cultures are negative for growth. Chest x-ray is pending in the morning. ASSESSMENT: 1. Acute bilateral pneumonia with radiographic findings noted, yet with negative sputum cultures, being treated currently with meropenem antibiotics, having now completed fifth day of IV therapy. 2. Moderate congestive heart failure of undetermined etiology with an elevated BNP and pulmonary edema, showing improvement. 3. History of metabolic acidosis on admission, probable lactic acidosis, showing improvement with fluid supplementation and antibiotic treatment continuing. 4. Chronic renal insufficiency with prerenal azotemia, secondary to dehydration and hypovolemic state, helped by fluid supplementation. 5. Diabetes mellitus on oral therapy. 6. Significant swallowing problem with dysphagia resulting in significant aspiration potential possibly contributing to his pneumonia process and affecting adversely his nutritional status. 7. History of hypothyroidism with an elevated TSH requiring adjustment of supplemental medications. 8. Chronic atrial fibrillation with rapid ventricular response initially on a beta twin, to which has been added digoxin to help control ventricular rate. 9. History of hyperkalemia, showing eventually hypokalemia, improved with supplementation. 10. Chronic insomnia. 11. Dementia, moderately severe. PLAN: Recheck chest x-ray in the morning. Discuss with [facility] the possibility of returning for custodial care. Suggest scheduling outpatient swallow study by visiting specialists that come to [facility] for the study purpose. If significant aspiration potential present, may consider gastric tube for feeing. In the meantime, we will try a pureed diet with pudding supplementation with special attention to preventing aspiration and regurgitation. Reevaluate tomorrow. May benefit by an additional four or five days of an oral antibiotic to continue the ongoing coverage of underlying pneumonia process even though no cultures were noted to be positive on sputum and blood. Close followup suggested with Dr. Haines, his primary care physician, as special attention to nutrition and prevention of aspiration continues. #[id number] [facility]
[2017-03-18] MEDS: PANTOPRAZOLE SODIUM TAB 40 MG PO SCH (06:26)
[2017-03-18] MEDS: LEVOTHYROXINE SODIUM 0.1 MG TAB PO SCH (06:26)
--- NOTE | 2017-03-18 06:59 | RAD ---
EXAM: Two view chest. INDICATION: Pneumonia. COMPARISON: Chest x-ray: 03/16/2017. FINDINGS: There are bibasilar airspace opacities with bilateral pleural effusions. The heart size is stable. There is no pneumothorax. The bones are unchanged. IMPRESSION: Bibasilar airspace opacities with bilateral pleural effusions Electronically signed by: Alexsander Aguirre MD 03/18/2017 6:58 AM CDT Workstation: [id number]
[2017-03-18] MEDS ORDERED: SODIUM CHL 0.9% 50ML MIN-BAG+ 50 ML IVPB ONE (07:23)
[2017-03-18] MEDS ORDERED: MEROPENEM 1 GM VIAL IVPB ONE (07:24)
[2017-03-18] MEDS: POTASSIUM CHLORIDE 10 MEQ TAB PO SCH (07:39)
[2017-03-18] MEDS: metFORMIN HCL 500 MG TAB PO SCH (07:39)
[2017-03-18] MEDS: BIFIDOBACTERIUM INFANTIS 4 MG CAP PO SCH (08:23)
[2017-03-18] MEDS: PROPRANOLOL LA 80 MG CAP PO SCH (08:23)
[2017-03-18] MEDS: RIVAROXABAN 10 MG TAB PO SCH (08:23)
[2017-03-18] MEDS: MEROPENEM 1 GM in SODIUM CHL 0.9% 50ML MIN-BAG+ 50 ML IVPB SCH (08:23)
[2017-03-18] MEDS: LISINOPRIL 5 MG TAB PO SCH (08:23)
[2017-03-18] MEDS: LEVALBUTEROL NEBS 1.25 MG/3 ML VIAL INH SCH ×2 (08:35→14:32)
[2017-03-18] MEDS: DIGOXIN 0.125 MG TAB PO SCH (13:21)
[2017-03-18 13:35] VITALS: O2SAT 96
[2017-03-18 14:24] VITALS: BP 128/72; TEMP 98.2
--- NOTE | 2017-03-24 08:35 | DS ---
SUPERVISING PHYSICIAN: Dylon Bridges MD DISCHARGE DIAGNOSIS: 1. Acute bilateral pneumonia as noted on radiographic findings with sputum cultures being negative, having been treated with meropenem for 5 days prior to discharge. 2. Congestive heart failure of undetermined etiology with an elevated BNP and pulmonary edema on admission, showing improvement after diuretic treatment. 3. History of metabolic acidosis on admission, probable lactic acidosis, showing improvement with fluid supplementation and antibiotic treatment with meropenem. 4. Chronic renal insufficiency with prerenal azotemia, due to dehydration and hypovolemic state, improved with fluid supplementation. 5. Diabetes mellitus on oral therapy, stable. 6. Significant swallowing issues with dysphagia resulting in significant aspiration possibly contributing to his pneumonia process and affecting adversely his nutritional status, needing followup with swallow studies. 7. History of hypothyroidism with an elevated TSH requiring adjustment of supplemental medications. 8. Chronic atrial fibrillation with rapid ventricular response initially on admission with beta twin, after which he was started on digoxin with continued ventricular controlled rate. 9. History of hyperkalemia, improved with supplementation. 10. Chronic insomnia. 11. Dementia, moderately severe. HISTORY OF PRESENT ILLNESS: Mr. Presley is an 81-year-old, male patient who resides at [facility]. He was brought in by EMS to the Emergency Room secondary to worsening shortness of breath. On arrival to the Emergency Room, it was noted he was lethargic and hypoxic with a SAO2 of 86% on room air with a respiratory rate of 45 and cardiac rhythm indicated atrial fibrillation with rapid ventricular response with rate of 139. The patient had been recently hospitalized for left lower lobe pneumonia and discharged on 02/20/17 and treated with Rocephin and azithromycin while in the hospital and discharged on continued antibiotics including cefdinir and continued dose of azithromycin. Vital signs initially in the Emergency Department showed he had a heart rate of 130 with blood pressure 119/62 and respirations were 45, saturation 90% on a simple facemask at 12 liters of flow. He was then started on BiPAP which did improve his saturations to 92%. Radiographic studies were completed and a single view chest per radiologic interpretation indicated interval worsening of bilateral, left greater than right, interstitial and airspace opacification, concerning for multifocal pneumonia or edema. Aspiration could be excluded. The patient was given Bumex 2 mg in the Emergency Room with concerns for pulmonary edema as he did have an elevated BNP of 408. However, the patient does not have an formal diagnosis of congestive heart failure. Rate control was attempted with medications to include Cardizem which resulted in a drop in his blood pressure and then he was started on digoxin 0.25 mg loading dose which did result in some improvement in his heart rate, dropping it down into the 90s. The patient was showing minimal improvement with BiPAP and Dr. Sandoval requested the patient be admitted to the Medical/Surgical Floor for continuation of treatment and further evaluation for possible developing congestive heart failure with pulmonary edema complicated by possible aspiration pneumonia. The patient is a DNR and, therefore, the patient was found stable at this point and admitted to the Medical/Surgical Floor for continuation of treatment and further evaluation. The majority of his history was obtained from previous hospitalization as the patient is unable to provide history secondary to his current mental status. LABORATORY: White count never did show an elevation and on admission was 10.2 and at discharge was 6.0. Hemoglobin and hematocrit stabilized and at discharge were 9.3 and 27.9. Platelet count was within normal limits and at discharge was 198,000. Differential did show a slight shift initially, but resolved prior to discharge and after initiation of treatment. His blood gas analysis in the Emergency Department showed a pH of 7.41, PCO2 41, PO2 370, bicarb 24, sat 100%. This was on BiPAP. Chemistries on admission showed sodium 132, potassium 5.3, chloride 98, BUN 32, creatinine 1.83. Total bilirubin 1.5, calcium 8.9. Cardiac enzymes showed troponin 0.04, BNP 408, TSH elevated at 8.85. Initial lactic acid on admission was 2.8. After fluids and treatment, it did normalize to 1.6 after admission. Prior to discharge and after treatment on the morning discharge, he did show a slightly low sodium of 134, electrolytes were within normal limits with potassium 4.2, BUN down to 12, creatinine 0.56. Blood sugars during hospitalization ranged from 81 to 169. Urinalysis on admission showed a small amount of bilirubin, otherwise within normal limits. Toxicology screen showed dig level that was therapeutic at 1.2. MICROBIOLOGY: Sputum culture showed normal cintia at 48 hours. Two sets of blood cultures showed no growth at 5 days. RADIOLOGY: Chest x-ray completed in the Emergency Department per radiologic interpretation of single view chest showed interval worsening of aeration of bilateral opacifications concerning for possible aspiration pneumonia. He had repeat chest x-rays and on the morning of discharge, final chest x-ray showed bibasilar airspace opacifications with bilateral pleural effusions. No additional radiographic studies were obtained. HOSPITAL COURSE: Mr. Presley was admitted as noted in history of present illness for concern for sepsis due to multifocal pneumonia with some aspiration component. He did have a lactic acid that was elevated. He was started on aggressive treatment with fluids which did improve his lactic acid. In the Emergency Room, he was showing a rapid ventricular response with atrial fibrillation and was started on digoxin. He was loaded and continued on digoxin at 0.625 and tolerated the digoxin well and was maintaining therapeutic levels. He did show good clinical improvement. He was still having some issues with swallowing, but was no longer requiring aggressive pulmonary support and on the morning of discharge was felt well enough to be continued on outpatient treatment with antibiotics and close followup. PLAN: The patient was discharged on 03/18/17 to have close clinical followup with Dr. Haines in 7 days or less to be arranged through [facility] facility. He was transferred back by [facility]. He will also need a swallow study. His diet will consist of thickened liquids and diabetic pureed foods to prevent further aspiration. Medications at discharge were noted as on MAR and below. I also recommended he have a recheck of his thyroid in 4 to 6 weeks as we did change his thyroid medicine for an elevated TSH. At discharge, he was continued on antibiotics to include Levaquin 500 mg daily for 5 days, increased his thyroid to 150 mcg daily, and started on potassium 10 mEq twice daily with food, #30. All other medications as per MAR. Discharge condition was stable and improved. #[id number] [facility]
== END 2017-03-18 13:15 | DRG 871 ==
LOC: ER 17:38 → MS 20:07 → OBSVTOIN 20:07
PROVIDERS: ADMIT Nurse Practitioner Family; ATTEND Nurse Practitioner Family
DX: A41.9 Sepsis, unspecified organism (principal); J18.9 Pneumonia, unspecified organism; J69.0 Pneumonitis due to inhalation of food and vomit; E87.2 Acidosis; R09.02 Hypoxemia; E86.0 Dehydration; E87.5 Hyperkalemia; E86.1 Hypovolemia; R13.10 Dysphagia, unspecified; E87.6 Hypokalemia; Y95 Nosocomial condition; E11.65 Type 2 diabetes mellitus with hyperglycemia; E03.9 Hypothyroidism, unspecified; I50.9 Heart failure, unspecified; I48.2 Chronic atrial fibrillation; K21.9 Gastro-esophageal reflux disease without esophagitis; N18.9 Chronic kidney disease, unspecified; G47.00 Insomnia, unspecified; F03.90 Unspecified dementia, unspecified severity, without behavioral disturbance, psychotic disturbance, mood disturbance, and anxiety; Z66 Do not resuscitate; Z79.01 Long term (current) use of anticoagulants; Z79.84 Long term (current) use of oral hypoglycemic drugs; Z88.0 Allergy status to penicillin; Z87.891 Personal history of nicotine dependence; Z79.899 Other long term (current) drug therapy